=== PATIENT | male | born 1965 | race Caucasian/White ===

== ENCOUNTER 2016-11-19 00:29 | Day surgery (SDC) | payer OTHER ==
[2016-11-19] VITALS (12 sets, daily range): BP systolic 127–153; BP diastolic 73–91; PULSE 64–84; RESP 14–20; O2SAT 96–100
[~2016-11-19] VITALS: Ht 182.9 cm; Wt 92.0 kg
[~2016-11-19 00:29] MED LIST: ASPI325T32 PO; CHOL10008 PO; LIP40 PO; LISI-567 PO; MAGN400T4 PO; METO25TA99 PO; OMEP20CA11 PO; SPIR25TA3 PO; SYN.15T2 PO; VITA100T4 PO
[2016-11-19 10:28] LABS: BASOPHILS % (AUTO) 1.3 % (0-3); EOSINOPHILS % (AUTO) 5.5 % (0-5); Mean Corpuscular Hemoglobin 30.1 pg (27.0-35.0); Mean Corpuscular Volume 90.8 fL (81-100); Platelet Count 218 bil/L (150-400)
[2016-11-19] MEDS ORDERED: MELA3TAB35 PO (10:51)
[2016-11-19] MEDS ORDERED: CLOB15CR3 TOP (10:51)
[2016-11-19] MEDS ORDERED: FEXO-106 PO (10:51)
[2016-11-19 10:54] LABS: INR 0.98 ratio
[2016-11-19] MEDS ORDERED: CeFAZolin 2 Gm/50 mL D5W Duplex Bag IV ONE (11:02)
[2016-11-19] MEDS ORDERED: Heparin 10,000 Unit/1,000 mL NS Premix IV ONE (11:04)
[2016-11-19] MEDS ORDERED: Bupivacaine-MPF 0.5% 30 mL Inj ONE (11:04)
[2016-11-19] MEDS ORDERED: 0.9% Sodium Chloride 250 ML ONE (11:04)
[2016-11-19] MEDS ORDERED: fentaNYL-PF 50 mCg/mL 2 mL Inj ONE (11:55)
[2016-11-19] MEDS ORDERED: CeFAZolin Inj 2 GM in IV Premix 1 EACH IV ONE (12:00)
[2016-11-19] MEDS: 0.9% Sodium Chloride 1,000 ML IV SCH ×2 (13:21→23:02)
[2016-11-19] MEDS ORDERED: Ondansetron 2 mg/mL 2 mL Inj IVPUSH PRN (13:25)
[2016-11-19] MEDS ORDERED: HYDROcodone-APAP 5-325 mg Tablet PO PRN (13:25)
--- NOTE | 2016-11-19 14:08 | NUR ---
Returned from chemical laboratory chief with a dual chamber pacemaker. Ice on pacer insertion site. PCXR done. at bedside.
[2016-11-19] MEDS ORDERED: 0.9% Sodium Chloride 1,000 ML IV ONE (14:25)
--- NOTE | 2016-11-19 14:47 | OP ---
[address] [address] OPERATIVE REPORT PATIENT: SHERITA MELO : 1965 MR#: [id number] ADMIT: 11/19/2016 JOB ID: [id number] DATE OF SURGERY: 11/19/2016 PREOPERATIVE DIAGNOSIS(ES): 1. Severe dilated cardiomyopathy with ejection fraction 25%-30%. 2. [place] [employer] class II heart failure symptoms. POSTOPERATIVE DIAGNOSIS(ES): 1. Severe dilated cardiomyopathy with ejection fraction 25%-30%. 2. [place] [employer] class II heart failure symptoms. PROCEDURES PERFORMED: 1. Dual-chamber ICD implantation. 2. Fluoroscopy. SURGEON: 1. Osman Ross M.D., electrophysiology attending. 2. Shaista Reilly M.D., threading machine operator. HAULPAK DRIVER: Hernan Bailey. IMPLANTED DEVICES: 1. [employer] pulse generator, model CD 2411, , serial #[id number]. 2. Right atrial lead [employer] 2088 TC, 52 cm, serial #[id number]. 3. RV lead single coil DF4, [employer] 7122Q, 65 cm, serial #[id number]. ANESTHESIA: Bolus dosing of Versed and fentanyl were utilized for an appropriate level of sedation. INDICATION: The patient is a pleasant 50-year-old man with severe dilated cardiomyopathy with intact conduction. After discussion of the risks and benefits of primary prevention of ICD implantation, he opted to proceed. PROCEDURAL DESCRIPTION: Following informed signed consent, the patient was taken to the EP laboratory in a fasting nonsedated state where he was prepped and draped in the usual sterile fashion. The left infraclavicular region was infiltrated with 40 cc of a 50/50 mixture of bupivacaine and lidocaine. Once adequate anesthesia had been achieved, a 3 cm transverse incision was performed 2 cm below the clavicle and the pectoralis fascia and a pocket was then fashioned using a combination of electrocautery and blunt dissection. Once adequate hemostasis had been achieved, access to the left axillary vein was gotten twice with a micropuncture needle to deploy two 0.035, 3 mm J guidewires. Over the first of these, a 7-[place] tear-away sheath was advanced. Once the guidewire was removed, active fixation was advanced to the RV outflow tract and ultimately to the RV apex. The lead was affixed in position using associated fixation screw. These were attached to the external analyzer and demonstrated appropriately sensed R waves, 10 V and there was no evidence of diaphragmatic stimulation. Attention was now paid to the right atrial lead over the deployed J guidewire. Over this, a 6-[place] tear-away sheath was advanced. Once the guidewire was removed, an active fixation lead was advanced to the right atrial appendage. It was affixed in position. Using its associated active fixation screw, the lead was connected to the external analyzer appropriately sensed P waves, impedance, capture. She was checked to 10 V. There was no evidence of diaphragmatic stimulation. Once the position and redundancy of both leads had been confirmed in multiple fluoroscopic views, the leads were anchored to the prepectoralis fascia using the associated anchoring sleeves and two Ethibond sutures. The pocket was then copiously irrigated with antibiotic solution. The leads were connected to a generator. Generator was placed in the pocket and affixed with 4-0 using 1-0 Ti-Cron suture. The incision was then closed with running layers of absorbable suture. The wound was dressed with skin adhesive, dressing. At the end of the procedure, the needle, sponge and instrument counts were all correct. COMPLICATIONS: None. BLOOD LOSS: Negligible. DEVICE MEASURED: 1. Right atrial lead greater than 5 mV, 980 ohms, 0.5 V at 0.4 msec. 2. RV lead 11.9 mV, 610 ohms, 0.75 V at 0.5 msec. FINAL PROGRAM PARAMETERS: 1. DDD 60-130 beats per minute. 2. VF zone at 188 beats per minute with ATP during charge, maximum output shocks. 3. VT zone at 171 beats per minute with six rounds of ATP followed by shocks. 4. VT monitor zone at 150 beats per minute. IMPRESSION: Successful dual-chamber ICD implantation. PLAN: 1. Stat portable chest x-ray. 2. PA and lateral chest x-ray in the morning. 3. Device interrogation. 4. IV Ancef through tomorrow. 5. Keflex x7 days starting tomorrow. 6. Wound check in one week. ATTENDING STATEMENT: Osman Ross M.D., electrophysiology attending was present for and supervised/performed all aspects of this procedure.
--- NOTE | 2016-11-19 14:57 | DRSVH ---
PROCEDURE: X-RAY CHEST ONE VIEW, PORTABLE ([id number]) INDICATIONS: 50 year-old male with pacemaker placement. TECHNIQUE: One view of the chest was acquired. COMPARISON: None. FINDINGS: Surgical changes and devices: Left chest wall dual chamber pacer/ICD is present. Lungs and pleura: No pleural effusions or pneumothorax. Lungs are clear. Mediastinum: Mediastinal contours appear normal. Heart size is normal. Bones and chest wall: No suspicious bony lesions. Overlying soft tissues appear unremarkable. IMPRESSION: Left chest wall pacemaker appears in expected position. No pneumothorax. Dictated by: Alpesh Gu M.D. on 11/19/2016 at 13:55 Approved by: Alpesh Gu M.D. on 11/19/2016 at 13:56
[2016-11-19] MEDS ORDERED: CeFAZolin Inj 1 GM in IV Premix 1 EACH IV SCH (16:30)
--- NOTE | 2016-11-19 18:24 | NUR ---
Admission Patient arrived to floor at approx 1820. Oriented patient and spouse to room and hospital policies. Incision well approximated with no drainage present. Dressing now c/d/i. Continued frequent monitoring.
[2016-11-19] MEDS: Clobetasol Prop 0.05% 15 Gm Ointment TOPICAL SCH (20:30)
[2016-11-19] MEDS: CeFAZolin Inj 1 GM in IV Premix 1 EACH IV SCH (23:01)
[2016-11-20] VITALS: BP 123/81; PULSE 61; RESP 16; O2SAT 98
[2016-11-20 03:22] VITALS: BP 136/89; PULSE 60; RESP 16; O2SAT 99
--- NOTE | 2016-11-20 04:55 | NUR ---
Mobility Pt independent in the room. Steady gait. Eating and drinking ample amounts.
[2016-11-20] MEDS: CeFAZolin Inj 1 GM in IV Premix 1 EACH IV SCH (05:51)
[2016-11-20] MEDS ORDERED: Pantoprazole 20 mg ER24 Tablet PO SCH (06:30)
[2016-11-20] MEDS ORDERED: MeTOProlol XL 25 mg ER24 Tablet PO SCH (08:30)
[2016-11-20] MEDS: Clobetasol Prop 0.05% 15 Gm Ointment TOPICAL SCH (08:30)
--- NOTE | 2016-11-20 08:35 | PCM.DIMED ---
Discharge Instructions Date of Service Nov 20, 2016 Dates of Hospitalization Discharge Diagnosis Discharge Diagnosis Nonischemic Cardiomyopathy LV Dysfunction Hypertension Sleep Apnea NSVT Diet Discharge Diet: Low fat, Low Sodium, Heart Healthy Activity Discharge Activity: Other (Do not extend left elbow high above shoulder for one month. Do not lift, push or pull more than 10 lbs with the left arm for one month.) Call your provider Call your provider for: Fever or Chills, Bleeding, Excessive diarrhea Patient Instructions Follow-up in: 1 week Mid-level Provider (F9): Mark Trammell PA-C Follow-up with Mid-level in: 6 weeks Mark Trammell PA-C Nov 20, 2016 08:35
--- NOTE | 2016-11-20 08:42 | DRSVH ---
PROCEDURE: X-RAY CHEST, TWO VIEWS ([id number]) INDICATIONS: For new lead placement TECHNIQUE: 2 views of the chest were acquired. COMPARISON: 11/19/2016 FINDINGS: Surgical changes and devices: AICD in place. Lungs and pleura: No pleural effusions or pneumothorax. Lungs are clear. Mediastinum: Mediastinal contours are normal. Heart size is normal. Bones and chest wall: No suspicious bony abnormalities. Soft tissues appear unremarkable. IMPRESSION: Left-sided pacemaker. No acute cardiopulmonary abnormality. Dictated by: Brandon Vo M.D. on 11/20/2016 at 8:39 Approved by: Brandon Vo M.D. on 11/20/2016 at 8:40
[2016-11-20 08:43] VITALS: BP 135/87; PULSE 83; RESP 18; O2SAT 100
[2016-11-20] MEDS ORDERED: CEPH500C PO (08:47)
[2016-11-20] MEDS: 0.9% Sodium Chloride 1,000 ML IV SCH (09:21)
--- NOTE | 2016-11-20 09:35 | DIS ---
[address] [address] DISCHARGE SUMMARY PATIENT: SHERITA MELO : 1965 MR#: [id number] ADMIT: 11/19/2016 JOB ID: [id number] DIS: 11/20/2016 REASON FOR ADMISSION: Defibrillator implant. CHIEF COMPLAINT: Exertional dyspnea and fatigue. BRIEF HISTORY: The patient is a pleasant 50-year-old man with a nonischemic dilated cardiomyopathy and an LV ejection fraction of 30%-35%. He has not improved despite good heart failure medications and the passage of time. Defibrillator implant was recommended to protect him against sudden cardiac and he wished to proceed with this. COURSE IN HOSPITAL: The patient was admitted through the [facility] and taken to the laboratory chemist, where he received the dual-chamber ICD without incident. He was taken back to the [facility] for recovery from sedation and then transferred up to the third floor [facility] for overnight observation. He did well overnight and in the morning was feeling well and wished to be discharged home. Vital signs were stable, the ICD site is closed and dry and there is a small hematoma in the pocket but no active bleeding. Device evaluation showed excellent capture and sensing thresholds and 20% atrial pacing. Chest x-ray showed good lead positions and no pneumothorax. He was not having any chest pain and no dyspnea or lightheadedness. DISPOSITION: The patient was discharged home in good condition with a follow up appointment at the [facility] Cardiology office in one week. He was asked not to extend his left elbow above the shoulder for one month and not to lift, push or pull more than 10 pounds with the left arm for one month. He will follow his heart healthy and low fat, low sodium diet and take medications as prescribed. DISCHARGE MEDICATIONS: 1. Cephalexin 500 mg b.i.d. for one week. 2. Aspirin 325 mg daily. 3. Atorvastatin 40 mg daily. 4. Vitamin D 1000 units daily. 5. Clomethiazole cream applied topically b.i.d. 6. Fexofenadine 180 mg daily. 7. Levothyroxine 150 mcg daily. 8. Lisinopril 20 mg daily. 9. Magnesium oxide 400 mg b.i.d. 10. Melatonin 3 mg q.h.s. 11. Metoprolol succinate 25 mg daily. 12. Omeprazole 20 mg daily. 13. Spironolactone 12.5 mg daily. 14. Vitamin B tablets 100 mg daily. FINAL DIAGNOSES: 1. Non-ischemic cardiomyopathy. 2. Left ventricular dysfunction. 3. Hypertension. 4. Sleep apnea. 5. Nonsustained ventricular tachycardia.
--- NOTE | 2016-11-20 10:59 | NUR ---
Discharge Pt d/c home with via wc by an aide at 0945. Pt medicated for back pain with PO tylenol. Pacer site red on L anterior chest, non bleeding but tender. Pt refused to wear sling on arm at discharge but took it home with him. Site open to air by DONNA this AM. d/c teaching provided, pt denies having questions. IV x2 d/c. VSS. All personal belongings went home with pt.
== END 2016-11-20 09:53 | disposition home or self-care (01) ==
LOC: SOUO 00:29 → MPC 18:06 → SOUO 11-20 09:53
PROVIDERS: ATTEND Internal Medicine Cardiovascular Disease
DX: I42.0 Dilated cardiomyopathy (principal); Z00.6 Encounter for examination for normal comparison and control in clinical research program; I47.2 Ventricular tachycardia; I51.9 Heart disease, unspecified; G47.30 Sleep apnea, unspecified; I10 Essential (primary) hypertension; E78.5 Hyperlipidemia, unspecified; K21.9 Gastro-esophageal reflux disease without esophagitis; Z79.82 Long term (current) use of aspirin
CPT/HCPCS: 33249; 36415; 71010; 71020; 80048; 85025; 85610; 93005; 99152; 99153; C1721; C1769; C1777; C1892; C1898; J0690; J1644; J2250; J3010; J7030; J7050